=== PATIENT | female | born 1945 ===

== ENCOUNTER → 2017-12-03 | Outpatient (CLI) | payer OTHER, MEDICARE ==
[~2017-12-03] MED LIST: JANTOVEN5 MG PO; LISINOPRIL40 MG PO; LOVENOX SC; MULTIVITAMINS PO; ZOCOR 20 MG TAB20 M1 PO; [UNRECOGNIZED DRUG - REMARK]
== END ==
LOC: RAD 03:16
DX: Z12.31 Encounter for screening mammogram for malignant neoplasm of breast (principal)

== ENCOUNTER → 2019-11-11 | Outpatient (CLI) | payer OTHER, MEDICARE | LOC: RAD 12:22 | DX: Z12.31 Encounter for screening mammogram for malignant neoplasm of breast (principal) ==

== ENCOUNTER → 2019-11-17 | Outpatient (CLI) | payer OTHER, MEDICARE | LOC: RAD 09:46 | DX: R92.2 Inconclusive mammogram (principal); N63.20 Unspecified lump in the left breast, unspecified quadrant ==